=== PATIENT | female | born 1960 | race American Indian/Alaskan Native ===

== ENCOUNTER 2018-07-20 16:48 | Inpatient (IN) | payer BC ==
[~2018-07-20] VITALS: Ht 165.1 cm; Wt 81.8 kg
[~2018-07-20 16:48] MED LIST: BELPTAB PO; CELE200 PO; HYDR1TAB94 PO; IBUP400; LEVSOD88 PO; MECL25 PO; METR500 PO; OXYACE5T PO; Robaxin500 MG PO; SULTRIDS PO; THYR60 PO
[2018-07-20] MEDS ORDERED: PRED20 PO (17:29)
[2018-07-20] MEDS ORDERED: Sudogest30 MG PO (17:29)
[2018-07-20] MEDS ORDERED: EUTHYROX112 MCG PO (17:30)
[2018-07-20] MEDS ORDERED: ROBAFEN AC ORA473 ML (17:30)
[2018-07-20] MEDS ORDERED: ALBU90OI61 INH (17:30)
[2018-07-20 18:58] LABS: Source, Urine Clean Catch
[2018-07-20 19:04] LABS: Appearance, Urine Clear (Clear); Bilirubin, Urine Neg (Neg); Blood, Urine 2+ (Neg); Color, Urine Yellow (P-Yellow); Glucose Qualitative, Urine Neg (Neg); Ketones, Urine Neg (Neg); Leukocyte Esterase, Urine Neg (Neg); Nitrite, Urine Neg (Neg); Protein, Urine 1+ (Neg); Specific Gravity, Urine 1.015 (1.003-1.022); Urobilinogen, Urine NORM (Normal)
[2018-07-20 19:12] LABS: BASOPHILS ABSOLUTE AUTO 0.02 K/mm3 (0.00-0.23); BASOPHILS PERCENT AUTO 0 % (0-2); EOSINOPHILS ABSOLUTE AUTO 0.02 K/mm3 (0.00-0.68); EOSINOPHILS PERCENT AUTO 0 % (0-6); Hematocrit 38.9 % (33.0-51.0); Hemoglobin 13.8 g/dL (11.5-16.0); IMMATURE GRAN ABSOLUTE AUTO 0.08 K/mm3 (0.00-0.10); IMMATURE GRAN PERCENT AUTO 1 % (0-1); LYMPHOCYTES ABSOLUTE AUTO 2.98 K/mm3 (0.84-5.20); LYMPHOCYTES PERCENT AUTO 21 % (21-46); MONOCYTES ABSOLUTE AUTO 2.06 K/mm3 (0.16-1.47); MONOCYTES PERCENT AUTO 14 % (4-13); Mean Corpuscular HGB 32.5 pg (26.0-34.0); Mean Corpuscular HGB Conc 35.5 g/dL (31.5-36.5); Mean Corpuscular Volume 92 fL (80-100); Mean Platelet Volume 8.4 fL (9.1-12.4); NEUTROPHILS ABSOLUTE AUTO 9.37 K/mm3 (1.96-9.15); NEUTROPHILS PERCENT AUTO 65 % (41-73); Platelet Count 311 K/mm3 (150-400); RDW Coefficient Variation 11.7 % (11.7-14.2); RDW Standard Deviation 39.1 fL (35.1-46.3); Red Blood Cell Count 4.24 M/mm3 (3.80-5.20); White Blood Cell Count 14.53 K/mm3 (4.00-11.30)
[2018-07-20 19:16] LABS: Bacteria Mod /hpf; Red Blood Cells, Urine 0-2 /hpf (0-2); Squamous Epithelial Cells Few /hpf (Few)
[2018-07-20 19:17] LABS: Mucus Light (0-Heavy)
[2018-07-20 19:35] LABS: Alanine Aminotransfer (ALT/SGP 61 U/L (12-78); Albumin, Blood 3.7 g/dL (3.4-5.0); Albumin/Globulin Ratio 0.9 (0.8-1.8); Alk Phos 75 U/L (50-136); Anion Gap 7 mmol/L (6-16); Aspartate Aminotrans (AST/SGOT 34 U/L (12-37); Blood Urea Nitrogen 9 mg/dL (8-24); Bun/Creatinine Ratio 13.7 (12.0-20.0); CO2, Blood 24 mmol/L (21-32); Calcium, Blood 8.8 mg/dL (8.5-10.1); Chloride, Blood 107 mmol/L (98-108); Creatinine, Blood 0.66 mg/dL (0.40-1.00); Globulin, Blood 3.9 g/dL (2.2-4.0); Glomerular Filtration Rate >60 (60-); Glucose, Blood 101 mg/dL (70-99); Potassium, Blood 3.6 mmol/L (3.5-5.5); Sodium, Blood 138 mmol/L (136-145); Total Protein, Blood 7.6 g/dL (6.4-8.2)
[2018-07-20 20:31] LABS: Influenza A Negative (NEGATIVE); Influenza B Negative (NEGATIVE)
--- NOTE | 2018-07-21 00:20 | NUR ---
REPORT RECIEVED FROM PIERRE FRANKEL RN AND PT T/F VIA BED TO ROOM 350. PT A/O X4 W/STEADY GAIT AND INDEPENDENT IN ROOM. PT ORIENTED TO ROOM AND CALL SYSTEM. SHE DENIES PAIN/COMPLAINTS. WILL MONITOR FOR RESP DISTRESS BUT DENIES NEEDS AT THIS TIME.
--- NOTE | 2018-07-21 00:55 | NUR ---
PT PUT ON DROPLET/CONTACT PRECAUTIONS TO R/O C.DIFF AND PENDING RESP PANEL RESULT WHICH WAS OBTAINED AND SENT AT 0050. WILL OBTAIN C.DIFF SPECIMEN WHEN PT HAS BM. SHE REPORTS DIARRHEA 1 WEEK AGO BUT NO BM IN 2-3 DAYS.
[2018-07-21 03:37] LABS: Adenovirus Not Detected (NOT DETECT); Bordetella pertussis Not Detected (NOT DETECT); Chlamydophila pneumoniae Not Detected (NOT DETECT); Coronavirus 229E Not Detected (NOT DETECT); Coronavirus HKU1 Not Detected (NOT DETECT); Coronavirus NL63 Not Detected (NOT DETECT); Coronavirus OC43 Not Detected (NOT DETECT); Human Metapneumovirus Not Detected (NOT DETECT); Human Rhinovirus/Enterovirus Not Detected (NOT DETECT); Influenza A Not Detected (NOT DETECT); Influenza A/2009-H1 Not Detected (NOT DETECT); Influenza A/H1 Not Detected (NOT DETECT); Influenza A/H3 Not Detected (NOT DETECT); Influenza B Not Detected (NOT DETECT); Mycoplasma pneumoniae Not Detected (NOT DETECT); Parainfluenza Virus 1 Not Detected (NOT DETECT); Parainfluenza Virus 2 Not Detected (NOT DETECT); Parainfluenza Virus 3 Not Detected (NOT DETECT); Parainfluenza Virus 4 Not Detected (NOT DETECT); Respiratory Syncytial Virus Not Detected (NOT DETECT)
--- NOTE | 2018-07-21 04:05 | NUR ---
RESP PANEL (-) SO DROPLET PREC'S DC'D. PT STILL ON CONTACT TO R/O C.DIFF.
--- NOTE | 2018-07-21 05:07 | NUR ---
SUMMARY: A/OX4, INDEPENDENT IN ROOM AND CALLS APPROPRIATELY. SHE'S DENIED PAIN, NAUSEA AND ALL OTHER COMPLAINTS THIS SHIFT. LS ARE COARSE T/O AND DIM IN BASES. NO SOB NOTED BUT PT REPORTS BECOMING MORE LABORED W/EXERTION. SHE WAS PLACED ON 1L O2 VIA NC TO MAINTAIN SPO2>90%. NS COMMENCED AT 75 ML/HR X1 BAG AND IV SOLUMEDROL RECIEVED PER EMAR. PT REFUSED FLU VAC HAVING HAD IT THIS SEASON ALREADY. RESP PANEL WAS (-) SO PT WAS TAKEN OUT OF DROPLET PREC'S. SHE REMAINS IN CONTACT ISO TO R/O C.DIFF. STAFF UNABLE TO COLLECT STOOL SPECIMEN D/T NO BM. SHE REPORTED DIARRHEA 1 WK AGO BUT NO BM X2-3 DAYS R/T LACK OF APPETITE. NO ACUTE CHANGES, VSS/AFEBRILE. WILL MONITOR AND REPORT TO DAY RN.
--- NOTE | 2018-07-21 17:40 | NUR ---
SHIFT SUMMARY NO ACUTE CHANGES. MEDICATED X 1 FOR HEADACHE. DENIES NAUSEA AND SHORTNESS OF BREATH. INDEPENDENT IN ROOM. CDIFF NEGATIVE. CALL LIGHT IN REACH, WILL CONTINUE TO MONITOR.
--- NOTE | 2018-07-22 05:30 | NUR ---
Shift summary: Pt's lung sound courses with wheezes throughout. Pt getting resp tx as scheduled. Pt also has frequent non-productive cough. Pt got guiafesson and tessalon pearles during night which helped with cough. Pt also got tylenol for low grade temp. Last temp wnl. Pt was able to sleep most of night otherwise.
[2018-07-22 15:54] LABS: PO2 Arterial 68.9 mmHg (80-100); pH Blood Arterial 7.46 (7.35-7.45)
--- NOTE | 2018-07-22 19:28 | NUR ---
SHIFT SUMMARY NO ACUTE CHANGES. PATIENT MEDICATED X1 FOR COUGH AND HEADACHE. DENIES NAUSEA AND SHORTNESS OF BREATH. SCHEDULED RT TREATMENTS. INDEPENDENT IN ROOM. REPORTS SHE IS FEELING BETTER TODAY BUT STILL REQUIRES 2L NC TO MAINTAIN SATS. REPORT GIVEN TO MIROSLAVA RAE.
--- NOTE | 2018-07-23 05:39 | NUR ---
OPENSTACK DEVELOPER SUMMARY NO ACUTE CHANGES THIS SHIFT. PT AAOX4 AND INDEPENDENT IN ROOM. LUNGS COARSE WITH DRY HACKING COUGH. GIVEN TESSALON PERLES X2 THIS SHIFT WELL SOME HOT TEA, PT REPORTS IT DID HELP. GIVEN TYLENOL X2 FOR HEADACHE WITH GOOD RELIEF. VSS, WILL CONTINUE TO MONITOR.
[2018-07-23 08:44] LABS: Hematocrit 40.2 % (33.0-51.0); Hemoglobin 13.5 g/dL (11.5-16.0); Mean Corpuscular HGB 31.8 pg (26.0-34.0); Mean Corpuscular HGB Conc 33.6 g/dL (31.5-36.5); Mean Platelet Volume 8.5 fL (9.1-12.4); Platelet Count 389 K/mm3 (150-400); RDW Standard Deviation 41.8 fL (35.1-46.3); Red Blood Cell Count 4.24 M/mm3 (3.80-5.20); White Blood Cell Count 15.79 K/mm3 (4.00-11.30)
[2018-07-23 08:52] LABS: Mean Corpuscular Volume 95 fL (80-100)
[2018-07-23 09:08] LABS: Anion Gap 5 mmol/L (6-16); Blood Urea Nitrogen 12 mg/dL (8-24); Bun/Creatinine Ratio 21.3 (12.0-20.0); CO2, Blood 28 mmol/L (21-32); Calcium, Blood 8.9 mg/dL (8.5-10.1); Chloride, Blood 109 mmol/L (98-108); Creatinine, Blood 0.56 mg/dL (0.40-1.00); Glomerular Filtration Rate >60 (60-); Glucose, Blood 89 mg/dL (70-99); Potassium, Blood 3.7 mmol/L (3.5-5.5); Sodium, Blood 142 mmol/L (136-145)
--- NOTE | 2018-07-23 19:31 | NUR ---
SHIFT SUMMARY HARDY COMPLAINED OF HEADACHE AND R UPPER ABD PAIN. RECEIVED TYLENOL FOR HEADACHE AND TESSALON PEARLS FOR COUGH WHICH HELPED QUITE A BIT. ORIENTED AND INDEPENDENT IN ROOM. WEANED TO ROOM AIR THIS SHIFT. HAD ABD XR THIS SHIFT, UNREMARKABLE. HANDED OVER TO TEAM LEADER
[2018-07-24 05:49] LABS: Hematocrit 38.8 % (33.0-51.0); Hemoglobin 13.6 g/dL (11.5-16.0); Mean Corpuscular HGB 32.5 pg (26.0-34.0); Mean Corpuscular HGB Conc 35.1 g/dL (31.5-36.5); Mean Corpuscular Volume 93 fL (80-100); Mean Platelet Volume 8.6 fL (9.1-12.4); Platelet Count 431 K/mm3 (150-400); RDW Coefficient Variation 11.9 % (11.7-14.2); RDW Standard Deviation 40.9 fL (35.1-46.3); Red Blood Cell Count 4.18 M/mm3 (3.80-5.20); White Blood Cell Count 16.33 K/mm3 (4.00-11.30)
[2018-07-24 06:24] LABS: Alanine Aminotransfer (ALT/SGP 46 U/L (12-78); Albumin, Blood 3.2 g/dL (3.4-5.0); Albumin/Globulin Ratio 0.8 (0.8-1.8); Alk Phos 75 U/L (50-136); Anion Gap 7 mmol/L (6-16); Aspartate Aminotrans (AST/SGOT 21 U/L (12-37); Bilirubin, Total 0.6 mg/dL (0.1-1.0); Blood Urea Nitrogen 11 mg/dL (8-24); Bun/Creatinine Ratio 18.2 (12.0-20.0); CO2, Blood 27 mmol/L (21-32); Calcium, Blood 8.4 mg/dL (8.5-10.1); Chloride, Blood 107 mmol/L (98-108); Globulin, Blood 3.9 g/dL (2.2-4.0); Glomerular Filtration Rate >60 (60-); Glucose, Blood 86 mg/dL (70-99); Potassium, Blood 3.3 mmol/L (3.5-5.5); Sodium, Blood 141 mmol/L (136-145); Total Protein, Blood 7.1 g/dL (6.4-8.2)
--- NOTE | 2018-07-24 08:13 | NUR ---
PATIENT HAD LITTLE SLEEP DURING THE SHIFT; SHE CONTINUES TO HAVE ANON-PRODUCTIVE COUGH AND BOT INSPIRATORY AND EXPIRATORY WHEEZES THRU OUT; VERY COARSE LUNG SOUNDS; PATIENT HACKING COUGH. CALLED HOSPIRTALIST TO GET HER A COUGH SYRUP AND RECEIVED ORDERS PER EMAR. PATIENT HAD A FEW HOURS SLEEP PER HER REPORT. CONTINUES TO FEEL ACHY AND HEADACHES. RECEIVED MEDS PER ORDER.
--- NOTE | 2018-07-24 19:48 | NUR ---
PT A/OX3, PLEASANT AND COOPERATIVE, THE PT WAS UP IND IN HER ROOM THE PT APPEARS TO BE BREATHING EASILY ON RA AT REST, THE PT WAS MEDICATED FOR COUGH AND H/A PAIN T/O THE DAY , THE TP REPORTED THIS EVENING THAT SHE WAS FEELING BETTER THAN SHE WAS THIS AM, CALL LIGHT IN REACH
--- NOTE | 2018-07-24 20:54 | NUR ---
PATIENT IV WAS OCCLUDED AND TENDER; REMOVED IT; PATIENT NOT RECIEVING ANY MEDS THRU WILL SPEAK WITH HOSPITALIST
[2018-07-25 05:39] LABS: Hematocrit 37.9 % (33.0-51.0); Hemoglobin 13.1 g/dL (11.5-16.0); Mean Corpuscular HGB 32.3 pg (26.0-34.0); Mean Corpuscular HGB Conc 34.6 g/dL (31.5-36.5); Mean Corpuscular Volume 93 fL (80-100); Mean Platelet Volume 8.4 fL (9.1-12.4); Platelet Count 383 K/mm3 (150-400); RDW Coefficient Variation 11.9 % (11.7-14.2); Red Blood Cell Count 4.06 M/mm3 (3.80-5.20); White Blood Cell Count 17.25 K/mm3 (4.00-11.30)
[2018-07-25 06:05] LABS: Magnesium, Blood 2.1 mg/dL (1.6-2.4)
[2018-07-25 06:06] LABS: Anion Gap 5 mmol/L (6-16); Blood Urea Nitrogen 12 mg/dL (8-24); Bun/Creatinine Ratio 21.3 (12.0-20.0); CO2, Blood 28 mmol/L (21-32); Calcium, Blood 8.5 mg/dL (8.5-10.1); Chloride, Blood 109 mmol/L (98-108); Creatinine, Blood 0.56 mg/dL (0.40-1.00); Glomerular Filtration Rate >60 (60-); Glucose, Blood 92 mg/dL (70-99); Phosphorus, Blood 3.2 mg/dL (2.5-4.9); Potassium, Blood 3.4 mmol/L (3.5-5.5); Sodium, Blood 142 mmol/L (136-145)
--- NOTE | 2018-07-25 19:13 | NUR ---
PT IS A/OX3 PLEASANT AND COOPERATIVE, THE PT IS UP IND. IN HER ROOM, THE PT WAS UP FOR A SHOWER THIS AM , THE PT HAS A HARSH LOOSE COUGH AND WAS MEDICATED FOR COUGH AND HEADACHE T/O THE DAY, CALL LIGHT IN REACH, FAMILY AT THE BEDSIDE
--- NOTE | 2018-07-26 05:54 | NUR ---
57 Y/O FEMALE RESTED COMFORTABLY IN BED ALL NIGHT. PT MEDICATED WITH TYLENOL 500MG FOR HEADACHE IN MIDDLE OF NIGHT WITH RELIEF VOICED. PTS LUNGS STILL WHEEZING THROUGHOUT WITH OCCASIONAL NON PRODUCTIVE COUGH NOTED. PT DENIES NAUSEA. PTS BED IN LOW POSITION WITH CALL LIGHT AT SIDE.
[2018-07-26 06:22] LABS: BASOPHILS ABSOLUTE AUTO 0.03 K/mm3 (0.00-0.23); BASOPHILS PERCENT AUTO 0 % (0-2); EOSINOPHILS ABSOLUTE AUTO 0.06 K/mm3 (0.00-0.68); EOSINOPHILS PERCENT AUTO 0 % (0-6); Hematocrit 37.2 % (33.0-51.0); IMMATURE GRAN ABSOLUTE AUTO 0.23 K/mm3 (0.00-0.10); IMMATURE GRAN PERCENT AUTO 1 % (0-1); LYMPHOCYTES ABSOLUTE AUTO 4.47 K/mm3 (0.84-5.20); LYMPHOCYTES PERCENT AUTO 28 % (21-46); MONOCYTES ABSOLUTE AUTO 1.67 K/mm3 (0.16-1.47); MONOCYTES PERCENT AUTO 10 % (4-13); Mean Corpuscular HGB 32.8 pg (26.0-34.0); Mean Corpuscular HGB Conc 34.9 g/dL (31.5-36.5); Mean Corpuscular Volume 94 fL (80-100); Mean Platelet Volume 8.3 fL (9.1-12.4); NEUTROPHILS ABSOLUTE AUTO 9.73 K/mm3 (1.96-9.15); NEUTROPHILS PERCENT AUTO 60 % (41-73); Platelet Count 394 K/mm3 (150-400); RDW Coefficient Variation 11.9 % (11.7-14.2); Red Blood Cell Count 3.96 M/mm3 (3.80-5.20); White Blood Cell Count 16.19 K/mm3 (4.00-11.30)
[2018-07-26 06:38] LABS: Albumin, Blood 2.9 g/dL (3.4-5.0); Anion Gap 6 mmol/L (6-16); Blood Urea Nitrogen 12 mg/dL (8-24); Bun/Creatinine Ratio 18.4 (12.0-20.0); CO2, Blood 28 mmol/L (21-32); Calcium, Blood 8.7 mg/dL (8.5-10.1); Chloride, Blood 105 mmol/L (98-108); Creatinine, Blood 0.65 mg/dL (0.40-1.00); Glomerular Filtration Rate >60 (60-); Glucose, Blood 114 mg/dL (70-99); Phosphorus, Blood 3.9 mg/dL (2.5-4.9); Potassium, Blood 3.4 mmol/L (3.5-5.5); Sodium, Blood 139 mmol/L (136-145)
--- NOTE | 2018-07-26 17:59 | NUR ---
SHIFT SUMMARY. A&OX4, INDEPENDENT TO BATHROOM, NO SAFETY CONCERNS. PT DENIES SOB, N/V, AND PAIN. PT REPORTS THAT SHE IS FEELING BETTER TODAY. LUNGS STILL SLIGHTLY COARSE, NO RA. POSSIBLE DISCHARGE TOMORROW. RECIEVED ONE DOSE OF LEVAQUIN IV.
--- NOTE | 2018-07-27 04:15 | NUR ---
*SHIFT SUMMARY* ASSUMED CARE FOR PATIENT FROM NARA Lara RN. PATIENT IS ALERT AND ORIENTED ON ROOM AIR. INDEPENDENT IN ROOM. PT HAD HEADACHE AND WAS MEDICATED ORDERED. PT SLEPT THROUGHOUT THE NIGHT. NO NEW CHANGES THROUGHOUT NIGHT. USES CALL LIGHT APPROPRIATELY.
[2018-07-27 05:37] LABS: BASOPHILS ABSOLUTE AUTO 0.02 K/mm3 (0.00-0.23); BASOPHILS PERCENT AUTO 0 % (0-2); EOSINOPHILS ABSOLUTE AUTO 0.06 K/mm3 (0.00-0.68); EOSINOPHILS PERCENT AUTO 0 % (0-6); Hematocrit 37.1 % (33.0-51.0); Hemoglobin 12.6 g/dL (11.5-16.0); IMMATURE GRAN ABSOLUTE AUTO 0.32 K/mm3 (0.00-0.10); IMMATURE GRAN PERCENT AUTO 2 % (0-1); LYMPHOCYTES ABSOLUTE AUTO 4.42 K/mm3 (0.84-5.20); LYMPHOCYTES PERCENT AUTO 30 % (21-46); MONOCYTES ABSOLUTE AUTO 1.48 K/mm3 (0.16-1.47); MONOCYTES PERCENT AUTO 10 % (4-13); Mean Corpuscular HGB 31.8 pg (26.0-34.0); Mean Corpuscular Volume 94 fL (80-100); Mean Platelet Volume 8.3 fL (9.1-12.4); NEUTROPHILS ABSOLUTE AUTO 8.22 K/mm3 (1.96-9.15); NEUTROPHILS PERCENT AUTO 57 % (41-73); Platelet Count 379 K/mm3 (150-400); RDW Coefficient Variation 11.9 % (11.7-14.2); RDW Standard Deviation 41.1 fL (35.1-46.3); Red Blood Cell Count 3.96 M/mm3 (3.80-5.20); White Blood Cell Count 14.52 K/mm3 (4.00-11.30)
[2018-07-27 06:15] LABS: Anion Gap 6 mmol/L (6-16); Blood Urea Nitrogen 14 mg/dL (8-24); Bun/Creatinine Ratio 22.4 (12.0-20.0); CO2, Blood 27 mmol/L (21-32); Calcium, Blood 8.8 mg/dL (8.5-10.1); Chloride, Blood 107 mmol/L (98-108); Creatinine, Blood 0.63 mg/dL (0.40-1.00); Glomerular Filtration Rate >60 (60-); Glucose, Blood 98 mg/dL (70-99); Potassium, Blood 3.9 mmol/L (3.5-5.5); Sodium, Blood 140 mmol/L (136-145)
[2018-07-27] MEDS ORDERED: GUAI600T33 PO (14:06)
[2018-07-27] MEDS ORDERED: ALBU3IS INH (14:07)
[2018-07-27] MEDS ORDERED: FLUT1DIS5 INH (14:08)
[2018-07-27] MEDS ORDERED: Acidophilus La100 GM PO (14:08)
[2018-07-27] MEDS ORDERED: LEVOFLOXACIN750 MG PO (14:08)
--- NOTE | 2018-07-27 14:37 | NUR ---
REVIEWED D'C W/PATIENT AWARE TO MAKE F/U APPT AND TO [facility] AT [facility]. REVIEW ALL MEDS. AWARE CAN GO BACK TO [facility]. IF ANY PROBLEMS OR CONCERNS. ANSWER ALL QUESTIONS. IN W/C TO POV W/ESCORT.
== END 2018-07-27 14:39 | disposition home or self-care (01) | DRG 189 ==
LOC: ER 16:48 → MEDS 23:27
PROVIDERS: Family Medicine; Internal Medicine; Nurse Practitioner Acute Care; Physician Assistant; ADMIT Hospitalist
DX: J96.01 Acute respiratory failure with hypoxia (principal); J18.9 Pneumonia, unspecified organism; J44.1 Chronic obstructive pulmonary disease with (acute) exacerbation; K52.1 Toxic gastroenteritis and colitis; J44.0 Chronic obstructive pulmonary disease with (acute) lower respiratory infection; Z87.891 Personal history of nicotine dependence; E03.9 Hypothyroidism, unspecified; J20.9 Acute bronchitis, unspecified; E87.6 Hypokalemia; T36.95XA Adverse effect of unspecified systemic antibiotic, initial encounter; Y92.9 Unspecified place or not applicable; G47.00 Insomnia, unspecified
CPT/HCPCS: 36415; 36600; 71046; 74018; 80048; 80053; 80069; 81001; 82803; 83735; 83880; 84145; 85025; 85027; 87086; 87486; 87493; 87581; 87633; 87798; 87804; 94010; 94640; 94644; 94660; 94664; 94667; 94760; 94762; 96361; 96374; 98960; 99285-25; J1650; J1956; J2930; J7030; J7512

== ENCOUNTER 2019-03-01 10:06 | Emergency (ER) | payer BC ==
[~2019-03-01] VITALS: Ht 165.1 cm; Wt 83.9 kg
[~2019-03-01 10:06] MED LIST changes: +ALBU3IS INH; +ALBU90OI61 INH; +Acidophilus La100 GM PO; +EUTHYROX112 MCG PO; +FLUT1DIS5 INH; +GUAI600T33 PO; +LEVOFLOXACIN750 MG PO; +PRED20 PO; +ROBAFEN AC ORA473 ML; +Sudogest30 MG PO
[2019-03-01] MEDS ORDERED: CELECOXIB200 MG PO (10:25)
[2019-03-01] MEDS ORDERED: SYNTHROID100 MCG PO (10:25)
[2019-03-01] MEDS ORDERED: Zanaflex4 MG PO (10:26)
[2019-03-01 11:00] LABS: BASOPHILS ABSOLUTE AUTO 0.04 K/mm3 (0.00-0.23); BASOPHILS PERCENT AUTO 1 % (0-2); EOSINOPHILS ABSOLUTE AUTO 0.06 K/mm3 (0.00-0.68); EOSINOPHILS PERCENT AUTO 1 % (0-6); Hematocrit 43.7 % (33.0-51.0); Hemoglobin 14.2 g/dL (11.5-16.0); IMMATURE GRAN ABSOLUTE AUTO 0.02 K/mm3 (0.00-0.10); IMMATURE GRAN PERCENT AUTO 0 % (0-1); LYMPHOCYTES ABSOLUTE AUTO 2.68 K/mm3 (0.84-5.20); LYMPHOCYTES PERCENT AUTO 34 % (21-46); MONOCYTES ABSOLUTE AUTO 0.81 K/mm3 (0.16-1.47); MONOCYTES PERCENT AUTO 10 % (4-13); Mean Corpuscular HGB 32.9 pg (26.0-34.0); Mean Corpuscular HGB Conc 32.5 g/dL (31.5-36.5); Mean Corpuscular Volume 101 fL (80-100); Mean Platelet Volume 8.3 fL (9.1-12.4); NEUTROPHILS ABSOLUTE AUTO 4.19 K/mm3 (1.96-9.15); NEUTROPHILS PERCENT AUTO 54 % (41-73); Platelet Count 224 K/mm3 (150-400); RDW Coefficient Variation 12.3 % (11.7-14.2); RDW Standard Deviation 46.4 fL (35.1-46.3); Red Blood Cell Count 4.32 M/mm3 (3.80-5.20)
[2019-03-01 11:38] LABS: Alanine Aminotransfer (ALT/SGP 83 U/L (12-78); Albumin/Globulin Ratio 1.1 (0.8-1.8); Alk Phos 93 U/L (50-136); Anion Gap 5 mmol/L (6-16); Aspartate Aminotrans (AST/SGOT 61 U/L (12-37); Bilirubin, Total 0.6 mg/dL (0.1-1.0); Blood Urea Nitrogen 14 mg/dL (8-24); Bun/Creatinine Ratio 20.4 (12.0-20.0); CO2, Blood 24 mmol/L (21-32); Chloride, Blood 112 mmol/L (98-108); Creatinine, Blood 0.69 mg/dL (0.40-1.00); Globulin, Blood 3.5 g/dL (2.2-4.0); Glomerular Filtration Rate >60 (60-); Glucose, Blood 83 mg/dL (70-99); Sodium, Blood 141 mmol/L (136-145); Total Protein, Blood 7.5 g/dL (6.4-8.2); Troponin I <0.015 ng/mL (0.000-0.040)
== END 2019-03-01 14:06 | disposition home or self-care (01) ==
LOC: ER 10:06
PROVIDERS: Emergency Medicine
DX: I47.1 Supraventricular tachycardia (principal); E03.9 Hypothyroidism, unspecified; Z87.891 Personal history of nicotine dependence; Z88.0 Allergy status to penicillin; Z79.899 Other long term (current) drug therapy
CPT/HCPCS: 71046; 80053; 84443; 84484; 85025; 93005; 93010; 93225; 93226; 99285-25

== ENCOUNTER → 2021-09-30 | Outpatient (CLI) | payer OTHER ==
[~2021-09-30] MED LIST changes: +CELECOXIB200 MG PO; +SYNTHROID100 MCG PO; +Zanaflex4 MG PO
[2021-09-30 18:08] LABS: Free Thyroxine 1.6 ng/dL (0.70-1.60)
[2021-09-30 18:11] LABS: Thyroid Stimulating Hormone 0.087 uIU/mL (0.360-4.800); Triiodothyronine, Free 2.96 pg/mL (2.18-3.98)
== END | disposition home or self-care (01) ==
LOC: LAB SHORT 12:40 → LAB 12:40
PROVIDERS: Nurse Practitioner Family
DX: E03.9 Hypothyroidism, unspecified (principal)
CPT/HCPCS: 84439; 84443; 84481

== ENCOUNTER 2022-08-21 08:22 | Day surgery (SDC) | payer OTHER ==
[~2022-08-21] VITALS: Ht 165.1 cm; Wt 72.2 kg
[2022-08-21] VITALS (15 sets, daily range): BP systolic 81–136; BP diastolic 60–81
[~2022-08-21 08:22] MED LIST changes: +SOFOSBUVIR-VEL1 EAC1 PO; +TRAM50 PO
--- NOTE | 2022-08-21 09:15 | NUR ---
History, Chart, Medications and Allergies reviewed before start of procedure.PRE OP TEACHING DONE. HAS POST NASAL DRIP THIS MORNING WITH OCC COUGH
--- NOTE | 2022-08-21 09:42 | NUR ---
08/21/22 0942 Jack Iglesias HISTORY, CHART, MEDICATIONS AND ALLERGIES REVIEWED BEFORE START OF PROCEDURE. PATIENT CONFIRMS NPO STATUS AND AGREES WITH SCHEDULED PROCEDURE. 3-LEAD EKG REVIEWED WITH PHYSICIAN PRIOR TO START OF PROCEDURE. MONITOR INTACT WITH CONTINUOUS PULSE OXIMETRY,CAPNOGRAPHY, 3-LEAD EKG, INTERMITTENT BP. SUPPLEMENTAL O2 TO BE TITRATED THROUGHOUT PROCEDURE TO MAINTAIN O2 SATURATION ABOVE 90%. PATIENT DETERMINED TO BE ASA APPROPRIATE FOR PROPOFOL SEDATION PRIOR TO START OF PROCEDURE BY DR. RUDOLPH.
== END 2022-08-21 23:17 | disposition home or self-care (01) ==
LOC: ORSCMMR 08:22 → ORD 09:30 → ORSCMMR 09:30
PROVIDERS: Internal Medicine Gastroenterology
PROC: 0DBN8ZX Excision of Sigmoid Colon, Via Natural or Artificial Opening Endoscopic, Diagnostic (ICD-10-PCS; principal; 2022-08-21 09:30)
DX: Z12.11 Encounter for screening for malignant neoplasm of colon (principal); Z86.010 Personal history of colon polyps; K63.5 Polyp of colon; K57.30 Diverticulosis of large intestine without perforation or abscess without bleeding; B19.20 Unspecified viral hepatitis C without hepatic coma; E03.9 Hypothyroidism, unspecified; Z87.891 Personal history of nicotine dependence; Z79.899 Other long term (current) drug therapy
CPT/HCPCS: 88305; J2704; J7120

== ENCOUNTER 2022-10-29 12:39 | Emergency (ER) | payer OTHER ==
[~2022-10-29] VITALS: Ht 165.1 cm; Wt 70.3 kg
[2022-10-29 13:31] LABS: Albumin, Blood 4.2 g/dL (3.4-5.0); Albumin/Globulin Ratio 1.1 (0.8-1.8); Bilirubin, Total 0.5 mg/dL (0.1-1.0); Bun/Creatinine Ratio 15.3 (12.0-20.0); Calcium, Blood 9.7 mg/dL (8.5-10.1); Creatinine, Blood 0.85 mg/dL (0.40-1.00); Globulin, Blood 3.9 g/dL (2.2-4.0); Potassium, Blood 3.8 mmol/L (3.5-5.5); Total Protein, Blood 8.1 g/dL (6.4-8.2)
[2022-10-29 15:13] LABS: BASOPHILS ABSOLUTE AUTO 0.04 K/mm3 (0.00-0.23); BASOPHILS PERCENT AUTO 0 % (0-2); EOSINOPHILS ABSOLUTE AUTO 0.06 K/mm3 (0.00-0.68); EOSINOPHILS PERCENT AUTO 1 % (0-6); Hematocrit 42.2 % (33.0-51.0); Hemoglobin 15.8 g/dL (11.5-16.0); IMMATURE GRAN ABSOLUTE AUTO 0.03 K/mm3 (0.00-0.10); IMMATURE GRAN PERCENT AUTO 0 % (0-1); LYMPHOCYTES ABSOLUTE AUTO 3.84 K/mm3 (0.84-5.20); LYMPHOCYTES PERCENT AUTO 38 % (21-46); MONOCYTES ABSOLUTE AUTO 1.28 K/mm3 (0.16-1.47); MONOCYTES PERCENT AUTO 13 % (4-13); Mean Corpuscular HGB 33.4 pg (26.0-34.0); Mean Corpuscular HGB Conc 37.4 g/dL (31.5-36.5); Mean Corpuscular Volume 89 fL (80-100); Mean Platelet Volume 8.3 fL (9.1-12.4); NEUTROPHILS ABSOLUTE AUTO 4.89 K/mm3 (1.96-9.15); NEUTROPHILS PERCENT AUTO 48 % (41-73); Platelet Count 248 K/mm3 (150-400); RDW Coefficient Variation 11.7 % (11.7-14.2); RDW Standard Deviation 38.1 fL (35.1-46.3); Red Blood Cell Count 4.73 M/mm3 (3.80-5.20); White Blood Cell Count 10.49 K/mm3 (4.00-11.30)
[2022-10-29 15:49] VITALS: BP 132/72
== END 2022-10-29 16:20 | disposition home or self-care (01) ==
LOC: ER 12:39
PROVIDERS: Emergency Medicine
DX: R00.2 Palpitations (principal); R07.9 Chest pain, unspecified; Z88.0 Allergy status to penicillin; Z79.890 Hormone replacement therapy; Z79.899 Other long term (current) drug therapy; E03.9 Hypothyroidism, unspecified; Z87.891 Personal history of nicotine dependence
CPT/HCPCS: 80053; 84484; 85025; 93005; 93010; 93246; 99285-25

== ENCOUNTER 2023-03-10 21:36 | Emergency (ER) | payer OTHER ==
[~2023-03-10] VITALS: Ht 165.1 cm; Wt 68.0 kg
[2023-03-10 22:34] LABS: Albumin/Globulin Ratio 1.1 (0.8-1.8); Bilirubin, Total 0.5 mg/dL (0.1-1.0); Bun/Creatinine Ratio 13.9 (12.0-20.0); Calcium, Blood 9.2 mg/dL (8.5-10.1); Creatinine, Blood 0.94 mg/dL (0.40-1.00); Globulin, Blood 3.6 g/dL (2.2-4.0); Potassium, Blood 3.7 mmol/L (3.5-5.5); Total Protein, Blood 7.6 g/dL (6.4-8.2)
[2023-03-10 23:36] LABS: BASOPHILS ABSOLUTE AUTO 0.02 K/mm3 (0.00-0.23); BASOPHILS PERCENT AUTO 0 % (0-2); EOSINOPHILS ABSOLUTE AUTO 0.11 K/mm3 (0.00-0.68); EOSINOPHILS PERCENT AUTO 1 % (0-6); Hematocrit 39.6 % (33.0-51.0); Hemoglobin 14.5 g/dL (11.5-16.0); IMMATURE GRAN ABSOLUTE AUTO 0.02 K/mm3 (0.00-0.10); IMMATURE GRAN PERCENT AUTO 0 % (0-1); LYMPHOCYTES ABSOLUTE AUTO 3.76 K/mm3 (0.84-5.20); LYMPHOCYTES PERCENT AUTO 44 % (21-46); MONOCYTES ABSOLUTE AUTO 1.43 K/mm3 (0.16-1.47); MONOCYTES PERCENT AUTO 17 % (4-13); Mean Corpuscular HGB 32.7 pg (26.0-34.0); Mean Corpuscular HGB Conc 36.6 g/dL (31.5-36.5); Mean Corpuscular Volume 89 fL (80-100); Mean Platelet Volume 8.9 fL (9.1-12.4); NEUTROPHILS ABSOLUTE AUTO 3.17 K/mm3 (1.96-9.15); NEUTROPHILS PERCENT AUTO 37 % (41-73); RDW Coefficient Variation 12.4 % (11.7-14.2); RDW Standard Deviation 40.4 fL (35.1-46.3); Red Blood Cell Count 4.44 M/mm3 (3.80-5.20)
[2023-03-10 23:47] LABS: Platelet Count 229 K/mm3 (150-400)
[2023-03-11 00:30] VITALS: BP 117/65
== END 2023-03-11 03:05 | disposition home or self-care (01) ==
LOC: ER 21:36
PROVIDERS: Emergency Medicine
DX: R00.2 Palpitations (principal); R07.9 Chest pain, unspecified; E03.9 Hypothyroidism, unspecified; Z88.0 Allergy status to penicillin; Z79.899 Other long term (current) drug therapy; Z87.891 Personal history of nicotine dependence
CPT/HCPCS: 71046; 80053; 83880; 84484; 85025; 93005; 93010; 99284-25

== ENCOUNTER 2023-04-03 17:02 | Emergency (ER) | payer OTHER ==
[~2023-04-03] VITALS: Ht 165.1 cm; Wt 68.0 kg
[2023-04-03 17:52] LABS: BASOPHILS ABSOLUTE AUTO 0.03 K/mm3 (0.00-0.23); BASOPHILS PERCENT AUTO 0 % (0-2); EOSINOPHILS ABSOLUTE AUTO 0.16 K/mm3 (0.00-0.68); EOSINOPHILS PERCENT AUTO 2 % (0-6); Hematocrit 38.4 % (33.0-51.0); Hemoglobin 14.2 g/dL (11.5-16.0); IMMATURE GRAN ABSOLUTE AUTO 0.01 K/mm3 (0.00-0.10); IMMATURE GRAN PERCENT AUTO 0 % (0-1); LYMPHOCYTES ABSOLUTE AUTO 3.99 K/mm3 (0.84-5.20); LYMPHOCYTES PERCENT AUTO 45 % (21-46); MONOCYTES PERCENT AUTO 14 % (4-13); Mean Corpuscular Volume 89 fL (80-100); NEUTROPHILS ABSOLUTE AUTO 3.51 K/mm3 (1.96-9.15); NEUTROPHILS PERCENT AUTO 40 % (41-73); Platelet Count 201 K/mm3 (150-400); RDW Coefficient Variation 13.4 % (11.7-14.2); RDW Standard Deviation 42.5 fL (35.1-46.3)
[2023-04-03 18:17] LABS: Albumin, Blood 4.1 g/dL (3.4-5.0); Albumin/Globulin Ratio 1.2 (0.8-1.8); Bilirubin, Total 0.6 mg/dL (0.1-1.0); Bun/Creatinine Ratio 18.2 (12.0-20.0); Calcium, Blood 9.3 mg/dL (8.5-10.1); Creatinine, Blood 0.77 mg/dL (0.40-1.00); Globulin, Blood 3.3 g/dL (2.2-4.0); Potassium, Blood 4.2 mmol/L (3.5-5.5); Total Protein, Blood 7.4 g/dL (6.4-8.2)
[2023-04-03 19:23] LABS: Source, Urine Clean Catch
[2023-04-03 19:30] LABS: Appearance, Urine Hazy (Clear); Bilirubin, Urine Neg (Neg); Blood, Urine 2+ (Neg); Color, Urine Amber (P-Yellow); Glucose Qualitative, Urine Neg (Neg); Ketones, Urine Neg (Neg); Leukocyte Esterase, Urine 2+ (Neg); Nitrite, Urine Neg (Neg); Protein, Urine Neg (Neg); Urobilinogen, Urine NORM (Normal)
[2023-04-03] MEDS ORDERED: HYDSUL200 PO ×2 (19:31→19:33)
[2023-04-03] MEDS ORDERED: FOLI1 PO ×2 (19:31→19:34)
[2023-04-03] MEDS ORDERED: RIFA300 PO ×2 (19:32→19:34)
[2023-04-03] MEDS ORDERED: EZET10 (19:32)
[2023-04-03] MEDS ORDERED: EZETIMIBE10 MG PO (19:36)
[2023-04-03 19:50] LABS: Bacteria Many /hpf; Squamous Epithelial Cells Mod /hpf (Few)
[2023-04-03] MEDS ORDERED: OMEP20ER PO (21:12)
[2023-04-03 22:12] VITALS: BP 105/67
== END 2023-04-03 22:30 | disposition home or self-care (01) ==
LOC: ER 17:02
PROVIDERS: Physician Assistant
DX: R10.13 Epigastric pain (principal); R10.84 Generalized abdominal pain; E03.9 Hypothyroidism, unspecified; L40.50 Arthropathic psoriasis, unspecified; Z87.891 Personal history of nicotine dependence; Z88.0 Allergy status to penicillin; Z79.899 Other long term (current) drug therapy
CPT/HCPCS: 74177; 80053; 81001; 83690; 85025; 87086; 99284-25; Q9967

== ENCOUNTER 2023-06-09 07:36 | Day surgery (SDC) | payer OTHER ==
[~2023-06-09 07:36] MED LIST changes: +EZET10; +EZETIMIBE10 MG PO; +FOLI1 PO; +HYDSUL200 PO; +OMEP20ER PO; +RIFA300 PO
== END 2023-06-09 23:22 | disposition home or self-care (01) ==
LOC: CT 07:36
DX: R07.89 Other chest pain (principal); E03.9 Hypothyroidism, unspecified; L40.50 Arthropathic psoriasis, unspecified; J44.9 Chronic obstructive pulmonary disease, unspecified; Z79.899 Other long term (current) drug therapy
CPT/HCPCS: 75574; Q9967

== ENCOUNTER 2023-10-21 10:45 | Emergency (ER) | payer OTHER ==
[~2023-10-21] VITALS: Ht 165.1 cm; Wt 68.0 kg
[2023-10-21 11:38] LABS: BASOPHILS ABSOLUTE AUTO 0.03 K/mm3 (0.00-0.23); BASOPHILS PERCENT AUTO 0 % (0-2); EOSINOPHILS ABSOLUTE AUTO 0.05 K/mm3 (0.00-0.68); EOSINOPHILS PERCENT AUTO 1 % (0-6); Hematocrit 43.7 % (33.0-51.0); Hemoglobin 16.1 g/dL (11.5-16.0); IMMATURE GRAN ABSOLUTE AUTO 0.01 K/mm3 (0.00-0.10); IMMATURE GRAN PERCENT AUTO 0 % (0-1); LYMPHOCYTES ABSOLUTE AUTO 3.22 K/mm3 (0.84-5.20); LYMPHOCYTES PERCENT AUTO 43 % (21-46); MONOCYTES ABSOLUTE AUTO 1.14 K/mm3 (0.16-1.47); MONOCYTES PERCENT AUTO 15 % (4-13); Mean Corpuscular HGB 34.8 pg (26.0-34.0); Mean Corpuscular HGB Conc 36.8 g/dL (31.5-36.5); Mean Corpuscular Volume 94 fL (80-100); Mean Platelet Volume 7.9 fL (9.1-12.4); NEUTROPHILS ABSOLUTE AUTO 3.03 K/mm3 (1.96-9.15); NEUTROPHILS PERCENT AUTO 41 % (41-73); Platelet Count 212 K/mm3 (150-400); RDW Coefficient Variation 12.6 % (11.7-14.2); RDW Standard Deviation 43.1 fL (35.1-46.3); Red Blood Cell Count 4.63 M/mm3 (3.80-5.20); White Blood Cell Count 7.48 K/mm3 (4.00-11.30)
[2023-10-21 12:05] LABS: Albumin, Blood 4.3 g/dL (3.4-5.0); Albumin/Globulin Ratio 1.2 (0.8-1.8); Bilirubin, Total 0.9 mg/dL (0.1-1.0); Bun/Creatinine Ratio 9.6 (12.0-20.0); Calcium, Blood 9.3 mg/dL (8.5-10.1); Creatinine, Blood 0.73 mg/dL (0.40-1.00); Globulin, Blood 3.7 g/dL (2.2-4.0); Potassium, Blood 3.7 mmol/L (3.5-5.5)
[2023-10-21 13:54] LABS: Source, Urine Clean Catch
[2023-10-21] MEDS ORDERED: Ipratropium/Albuterol SulF 2.5-0.5MG/3 ML Amp INH ONE (14:25)
[2023-10-21] MEDS ORDERED: MethylPREDNISolone Sod Succ 125 MG Vial IV ONE (14:25)
[2023-10-21] MEDS ORDERED: TraMADol HCl 50 MG Tab PO ONE (14:25)
[2023-10-21 14:30] LABS: Appearance, Urine Clear (Clear); Bilirubin, Urine Neg (Neg); Blood, Urine 3+ (Neg); Glucose Qualitative, Urine Neg (Neg); Ketones, Urine 1+ (Neg); Leukocyte Esterase, Urine 1+ (Neg); Nitrite, Urine Neg (Neg); Protein, Urine 1+ (Neg); Specific Gravity, Urine 1.005 (1.003-1.022); Urobilinogen, Urine NORM (Normal)
[2023-10-21] MEDS ORDERED: PRED20 PO (14:58)
[2023-10-21] MEDS ORDERED: DOXY100 PO (14:58)
[2023-10-21 15:00] VITALS: BP 120/76
[2023-10-21 15:05] LABS: Color, Urine Pale Yellow (P-Yellow)
[2023-10-21 15:06] LABS: Bacteria Mod /hpf; Mucus Light (0-Heavy); Squamous Epithelial Cells Rare /hpf (Few); White Blood Cells, Urine 0-2 /hpf (0-5)
== END 2023-10-21 15:31 | disposition home or self-care (01) ==
LOC: ER 10:45
PROVIDERS: Physician Assistant
DX: N83.202 Unspecified ovarian cyst, left side (principal); J20.9 Acute bronchitis, unspecified; E03.9 Hypothyroidism, unspecified; Z87.891 Personal history of nicotine dependence; Z79.899 Other long term (current) drug therapy; Z88.0 Allergy status to penicillin
CPT/HCPCS: 74177; 80053; 81001; 83690; 85025; 87086; 94640; 94664; 96374-59; 99284-25; A9270; J2919; Q9967

== ENCOUNTER 2024-05-29 11:34 | Observation (INO) | payer MEDICARE, OTHER ==
[~2024-05-29] VITALS: Ht 165.1 cm; Wt 67.8 kg
[~2024-05-29 11:34] MED LIST changes: +DOXY100 PO; +LEVSOD112 PO; -SYNTHROID100 MCG PO
[2024-05-29] MEDS ORDERED: Morphine Sulfate 4 MG/1 ML Injection IV ONE (11:40)
[2024-05-29] MEDS ORDERED: Ondansetron HCl 2 MG / ML 2ML Vial IV ONE (11:40)
[2024-05-29 11:52] LABS: BASOPHILS ABSOLUTE AUTO 0.04 K/mm3 (0.00-0.23); BASOPHILS PERCENT AUTO 1 % (0-2); EOSINOPHILS ABSOLUTE AUTO 0.09 K/mm3 (0.00-0.68); EOSINOPHILS PERCENT AUTO 1 % (0-6); Hematocrit 38.6 % (33.0-51.0); Hemoglobin 13.9 g/dL (11.5-16.0); IMMATURE GRAN ABSOLUTE AUTO 0.01 K/mm3 (0.00-0.10); IMMATURE GRAN PERCENT AUTO 0 % (0-1); LYMPHOCYTES ABSOLUTE AUTO 4.16 K/mm3 (0.84-5.20); LYMPHOCYTES PERCENT AUTO 52 % (21-46); MONOCYTES ABSOLUTE AUTO 1.39 K/mm3 (0.16-1.47); MONOCYTES PERCENT AUTO 17 % (4-13); Mean Corpuscular HGB 33.5 pg (26.0-34.0); Mean Corpuscular Volume 93 fL (80-100); NEUTROPHILS PERCENT AUTO 29 % (41-73); Platelet Count 221 K/mm3 (150-400); RDW Coefficient Variation 12.1 % (11.7-14.2); RDW Standard Deviation 41.6 fL (35.1-46.3); Red Blood Cell Count 4.15 M/mm3 (3.80-5.20); White Blood Cell Count 7.99 K/mm3 (4.00-11.30)
[2024-05-29] MEDS ORDERED: Bisoprolol Fumar5 MG PO (12:01)
[2024-05-29] MEDS ORDERED: CELE100 PO (12:01)
[2024-05-29 12:10] LABS: Albumin, Blood 3.8 g/dL (3.4-5.0); Bilirubin, Total 0.6 mg/dL (0.1-1.0); Bun/Creatinine Ratio 21.3 (12.0-20.0); Calcium, Blood 9.5 mg/dL (8.5-10.1); Creatinine, Blood 0.7 mg/dL (0.40-1.00); Globulin, Blood 3.7 g/dL (2.2-4.0); Potassium, Blood 4.3 mmol/L (3.5-5.5); Total Protein, Blood 7.5 g/dL (6.4-8.2)
[2024-05-29] MEDS ORDERED: Nitroglycerin 0.4 MG SUBL SL PRN (15:55)
[2024-05-29] MEDS ORDERED: FLU VACC TS2024-25(6MOS UP)/PF 45 MCG/0.5 ML SYRINGE IM PRN (16:00)
[2024-05-29] MEDS ORDERED: Atorvastatin 40 MG Tab PO SCH (16:00)
[2024-05-29] MEDS ORDERED: Ondansetron HCl 2 MG / ML 2ML Vial IV PRN (16:00)
[2024-05-29 16:22] LABS: Anti-Xa UFH, PHA Monitoring <0.10 IU/mL; International Normalized Ratio 0.98; Prothrombin Time Results 10.5 Sec (9.7-11.5)
[2024-05-29] MEDS ORDERED: Dose Adjust by Pharmacy XX STA (17:09)
[2024-05-29] MEDS ORDERED: Heparin Sodium,Porcine/0.5 NS 500 ML IV SCH (17:10)
[2024-05-29 21:21] VITALS: BP 142/70
--- NOTE | 2024-05-29 22:52 | NUR ---
SHIFT UPDATE RECIEVED PT FROM ER WITH HEPARIN GTT RUNNING. TROPONINS PEAKED. CARDIOLOGY CONSULT CALLED. CHEST PAIN/PRESSURE RESOLVED. PT ON TELE IN SINUS MALIHA. OTHERWISE NEGATIVE ASSESSMENT.
[2024-05-29 23:14] VITALS: BP 126/72
[2024-05-30] VITALS (13 sets, daily range): BP systolic 90–152; BP diastolic 58–81
[2024-05-30 00:24] LABS: Hematocrit 37.9 % (33.0-51.0); Hemoglobin 13.9 g/dL (11.5-16.0); Mean Corpuscular HGB 33.9 pg (26.0-34.0); Mean Corpuscular HGB Conc 36.7 g/dL (31.5-36.5); Mean Corpuscular Volume 92 fL (80-100); Mean Platelet Volume 8.3 fL (9.1-12.4); Platelet Count 194 K/mm3 (150-400); RDW Standard Deviation 40.8 fL (35.1-46.3); White Blood Cell Count 8.68 K/mm3 (4.00-11.30)
[2024-05-30 00:50] LABS: LDL/HDL RATIO 2.3; Very Low Density Lipoprot Chol 18 mg/dL (6-32)
[2024-05-30 00:51] LABS: Anion Gap 10 mmol/L (3-11); Blood Urea Nitrogen 14 mg/dL (8-24); Bun/Creatinine Ratio 19.3 (12.0-20.0); CHOL/HDL RATIO 3.6; CO2, Blood 26 mmol/L (21-32); Calcium, Blood 9.2 mg/dL (8.5-10.1); Chloride, Blood 109 mmol/L (98-108); Cholesterol 222 mg/dL (50-200); Creatinine, Blood 0.73 mg/dL (0.40-1.00); Glomerular Filtration Rate 94 (60-); Glucose, Blood 106 mg/dL (70-99); HDL Cholesterol 61 mg/dL (>39); Low Density Lipoprotein Chol 143 mg/dL (0-110); Potassium, Blood 3.8 mmol/L (3.5-5.5); Sodium, Blood 141 mmol/L (136-145); Triglycerides 91 mg/dL (30-160)
[2024-05-30] MEDS ORDERED: Dose Adjust by Pharmacy XX STA (07:42)
[2024-05-30] MEDS ORDERED: Aspirin 81 MG Chew PO SCH (09:00)
[2024-05-30] MEDS ORDERED: ALBU90OI INH (10:48)
[2024-05-30] MEDS ORDERED: TRAZ50 PO (10:49)
--- NOTE | 2024-05-30 11:27 | NUR ---
MORNING SUMMARY THE PT IS A&OX4, IND IN THE ROOM, AND IS ABLE TO MAKE HE NEEDS KNOWN. SHE HAS BEEN NPO TODAY FOR ANGIOGRAM, DR. LINDA CONSULTED PT FOR ANGIO. SHE HAS BEEN SB/SR 40'S-60'S ON TELE. BP STABLE AND PT W/O ANY ANGIN AOR CHEST PRESSURE. SHE IS ON RA W/ SP02 >93% AND SHE DENIES ANY SOB. HEPARIN GTT INFUSING PER EMAR, TITRAITED PER PHARMACY THIS MORNING. HER MEDICATION LIST WAS REQUEST FROM Clifford Thames AND WAS RECONCILLED BY YING RAE. ECHO COMPLETED TODAY. NO ACUTE EVENTS THIS MORNING. SEE NOTES FOR UPDATES.
[2024-05-30] MEDS ORDERED: Midazolam HCl 1MG / ML 2ML Vial ONE (11:50)
[2024-05-30] MEDS ORDERED: FentaNYL Citrate 50 MCG/ML 2 ML Injection ONE (11:50)
[2024-05-30] MEDS ORDERED: Verapamil HCL 2.5 MG/ML 2ML Injection ONE (11:50)
[2024-05-30] MEDS ORDERED: Heparin Sodium 1000 Units/ML 10ML MDV ONE (11:50)
[2024-05-30] MEDS ORDERED: NS 250 ML IV ONE (11:51)
[2024-05-30] MEDS ORDERED: NS 2,000 ML IV ONE (11:51)
[2024-05-30] MEDS ORDERED: Nitroglycerin 2 MG/20 ML BTL ONE (11:52)
[2024-05-30] MEDS ORDERED: TraZODone HCl 50 MG Tab PO PRN (11:55)
[2024-05-30] MEDS ORDERED: Clopidogrel Bisulfate 75 MG Tab PO SCH (12:00)
[2024-05-30] MEDS ORDERED: Albuterol HFA200 ACT/6.7 GM INH INH PRN (12:00)
--- NOTE | 2024-05-30 13:27 | NUR ---
PT BACK FROM ANGIOGRAM. RIGHT RADIAL ACCESS. 10 CC'S IN TR BAND. SITE W/O BLEEDING OR HEMATOMA. VITAL SIGNS STABLE. PT DENIES ANY ANGINA OR CHEST PRESSURE. PT'S SON TOSHA AT BEDSIDE AND UPDATED ON CARE.
[2024-05-30] MEDS ORDERED: Isosorbide Mononitrate 30 MG TABCR PO SCH (13:45)
[2024-05-30] MEDS ORDERED: LOW DOSE ASPIRI81 M1 PO (16:19)
[2024-05-30] MEDS ORDERED: Isosorbide Mono30 MG PO (16:20)
[2024-05-30] MEDS ORDERED: ATORVASTATIN CA80 M1 PO (16:20)
[2024-05-30] MEDS ORDERED: CLOP75 PO (16:20)
--- NOTE | 2024-05-30 17:44 | NUR ---
SHIFT SUMMARY PT A&oX4, CALLS APPROPRAITELY, SBA D/T RIGHT WRIST LIMITATIONS. THE PT HAS BEEN SB/SR 40'S-60'S ON TELE, BP SOFT BUT STABLE. DR. GUERRERO AWARE. SHE HAS BEEN ON RA W/ SP02 >93%. PT CONTINUES TO DENY ANY ANGINA, CHEST PRESSURE, OR SOB. SHE HAS AN ANGIOGRAM THIS AFTERNOON AND DID NOT HAVE ANY OCCLUSIONS. NO PCI. PT IS CLEARED FOR D/C ONCE TR SITE RECOVERED. PT'S FAMILY PICKED UP HER MEDICATIONS AT [facility] BEFORE THEY CLOSED FOR THE DAY. THE PT CURRENTLY HAD A TEGADERM OVER HER RIGHT RADIAL SITE. SLIGHT OOZING NOTED. ARM BOARD IN PLACE. MONITORING FOR CONTINUES OOZING OR BLEEDING BEFORE DISCHARGE. PLAN DISCUSSED WITH PRICING STRATEGIST AND DR. GUERRERO. PT IS ADIMIT ABOUT GOING HOME TONIGHT AND HAS FAMILY ARRANGED TO PICK HER UP. SEE NOTES FOR UPDATES.
--- NOTE | 2024-05-30 19:38 | NUR ---
PT D/C'D AT ABOUT 1920. TR SITE FULLY RECOVERED AND SITE W/O BLEEDING. TEGADERM C/D/I. D/C DIRECTIONS GONE OVER WITH THE PT AND HER NEPHEW. ALL BELONGINGS SENT WITH THE PT.
[2024-05-31] MEDS ORDERED: Pantoprazole Sodium 20 MG Tab PO SCH (06:00)
[2024-05-31] MEDS ORDERED: Levothyroxine Sodium 0.112 MG Tab PO SCH (06:00)
[2024-05-31] MEDS ORDERED: Metoprolol Succinate 50 MG TABCR PO SCH (09:00)
== END 2024-05-30 19:20 | disposition home or self-care (01) ==
LOC: ER 11:34 → PCU 11:35 → ERHOLD 11:35 → PCU 20:31
PROVIDERS: Emergency Medicine; ADMIT Internal Medicine
DX: I21.4 Non-ST elevation (NSTEMI) myocardial infarction (principal); I25.10 Atherosclerotic heart disease of native coronary artery without angina pectoris; J44.9 Chronic obstructive pulmonary disease, unspecified; I10 Essential (primary) hypertension; L40.50 Arthropathic psoriasis, unspecified; E03.9 Hypothyroidism, unspecified; Z87.891 Personal history of nicotine dependence; Z88.0 Allergy status to penicillin; Z88.5 Allergy status to narcotic agent; Z79.1 Long term (current) use of non-steroidal anti-inflammatories (NSAID); Z79.890 Hormone replacement therapy; Z79.899 Other long term (current) drug therapy; Z86.79 Personal history of other diseases of the circulatory system
CPT/HCPCS: 36415; 71045; 76937; 80048; 80053; 80061; 84484; 85025; 85027; 85520; 85610; 93005; 93010; 93306; 93454; 96374; 96375; 96376; 99152; 99285-25; A9270; C1769; C1887; C1894; G0378; J1644; J2250; J2270; J2405; J3010; J7030; J7050; Q9967

== ENCOUNTER 2024-10-26 02:35 | Day surgery (SDC) | payer MEDICARE, OTHER ==
[~2024-10-26 02:35] MED LIST changes: +ALBU90OI INH; +ATORVASTATIN CA80 M1 PO; +Bisoprolol Fumar5 MG PO; +CELE100 PO; +CLOP75 PO; +Isosorbide Mono30 MG PO; +LOW DOSE ASPIRI81 M1 PO; +TRAZ50 PO
[2024-10-26 11:54] VITALS: BP 107/59
[2024-10-26] MEDS ORDERED: Golimumab 130 MG in NS 100 ML IV SCH (12:10)
== END 2024-10-26 13:03 | disposition home or self-care (01) ==
LOC: ATC 02:35
DX: L40.59 Other psoriatic arthropathy (principal); M70.61 Trochanteric bursitis, right hip; M70.62 Trochanteric bursitis, left hip; G89.29 Other chronic pain; M54.41 Lumbago with sciatica, right side; I25.10 Atherosclerotic heart disease of native coronary artery without angina pectoris; M15.9 Polyosteoarthritis, unspecified; Z79.02 Long term (current) use of antithrombotics/antiplatelets; Z79.82 Long term (current) use of aspirin; Z79.890 Hormone replacement therapy; Z79.899 Other long term (current) drug therapy; Z88.0 Allergy status to penicillin; Z88.5 Allergy status to narcotic agent
CPT/HCPCS: 96365; J1602

== ENCOUNTER 2024-11-23 04:24 | Day surgery (SDC) | payer MEDICARE, OTHER ==
[2024-11-23 10:03] VITALS: BP 113/78
[2024-11-23] MEDS ORDERED: Golimumab 130 MG in NS 100 ML IV SCH (10:10)
== END 2024-11-23 11:02 | disposition home or self-care (01) ==
LOC: ATC 04:24
DX: L40.59 Other psoriatic arthropathy (principal); M70.62 Trochanteric bursitis, left hip; M70.61 Trochanteric bursitis, right hip; I25.10 Atherosclerotic heart disease of native coronary artery without angina pectoris; Z79.890 Hormone replacement therapy; Z79.899 Other long term (current) drug therapy; Z88.0 Allergy status to penicillin; Z88.5 Allergy status to narcotic agent; M54.41 Lumbago with sciatica, right side
CPT/HCPCS: 96365; J1602

== ENCOUNTER 2025-01-17 02:56 | Day surgery (SDC) | payer MEDICARE, OTHER ==
[~2025-01-17] VITALS: Wt 65.6 kg
[2025-01-17] MEDS ORDERED: Golimumab 130 MG in NS 100 ML IV SCH (10:20)
[2025-01-17 10:29] VITALS: BP 110/68
== END 2025-01-17 11:25 | disposition home or self-care (01) ==
LOC: ATC 02:56
DX: L40.59 Other psoriatic arthropathy (principal); I25.10 Atherosclerotic heart disease of native coronary artery without angina pectoris; Z88.0 Allergy status to penicillin; Z88.5 Allergy status to narcotic agent; Z79.82 Long term (current) use of aspirin; Z79.899 Other long term (current) drug therapy
CPT/HCPCS: 96365; J1602